=== PATIENT | male | born 1990 | race Caucasian/White ===

== ENCOUNTER 2024-11-29 21:16 | Emergency (ER) | payer MEDICAID, SELFPAY ==
[2024-11-29 21:18] VITALS: BMI 36.8
[2024-11-29 21:36] VITALS: BP 131/77; PULSE 115; RESP 18; TEMP 37.8; O2SAT 97
--- NOTE | 2024-11-29 21:49 | EDNOTE_ITS ---
Upper Respiratory Inf. RME/HPI General Chief Complaint: Flu Like Symptoms Stated Complaint: FEVER COUGH VOMITING THROAT PAIN Time Seen by Provider: 11/29/24 21:43 Arrival date/time: 11/29/24 21:16 34M with history of asthma presents to ED with several days of sore throat, N/V, fevers/chills, and some cough. Limitations: no limitations Related Data Home Medications ?Medication ?Instructions ?Recorded ?Confirmed Albuterol Sulfate HFA (INHALER) inhalation ##0 3 (PROVENTIL HFA (INHALER)) Previous Rx's ?Medication ?Instructions ?Recorded albuterol mdi 2 puff inhalation q4hprn whe christin ##2 06/08/13 prednisolone sodium phosphate 30 30 mg PO QDAY #5 tabs 11/06/18 mg disintegrating tablet ibuprofen 800 mg tablet 800 mg PO TID PRN pain #30 t abs 02/13/19 ibuprofen 600 mg tablet 600 mg PO Q8H PRN fever or p ain 10/17/23 #20 tabs amoxicillin 875 mg tablet 875 mg PO BID 10 days #20 ta bs 11/29/24 Allergies Allergy/AdvReac Type Severity Reaction Status Date / Time No Known Allergies Allergy Verified 11/29/24 21:23 Review of Systems Review of Systems Systems Reviewed: All systems reviewed, normal except as documented Constitutional Constitutional: Reports system reviewed and no additional complaints, except as documented, Reports as per HPI, Reports chills, Reports fever(s) and Denies headache(s) ENT Ears, Nose, Mouth, and Throat: Reports as per HPI, Denies disequilibrium, Denies headache(s) and Reports sore throat Cardiovascular Cardiovascular: Reports system reviewed and no additional complaints, except as documented, Denies chest pain and Denies dyspnea Respiratory Respiratory: Reports system reviewed and no additional complaints, except as documented, Reports as per HPI, Reports cough and Denies dyspnea Gastrointestinal Gastrointestinal: Reports system reviewed and no additional complaints, except as documented, Reports as per HPI, Denies abdominal pain, Reports nausea and Reports vomiting Neurologic Neurologic: Reports system reviewed and no additional complaints, except as documented, Denies confusion, Denies disequilibrium and Denies headache(s) Psychiatric Psychiatric: Denies confusion Past Medical History Past Medical History RESPIRATORY: Positive Asthma Social History SMOKING STATUS: Never smoker ED Exam General Limitations: Present no limitations General appearance: Present alert and in no apparent distress Head Head exam: Present atraumatic Eye Eye exam: Present normal appearance, PERRL and EOMI ENT ENT exam: Present mucous membranes moist Expanded ENT Exam Throat exam: Present tonsillar erythema, tonsillomegaly and tonsillar exudate; Absent R peritonsillar mass, L peritonsillar mass or muffled voice Neck Neck exam: Present normal inspection, full ROM and trachea midline Chest Chest inspection: Present normal inspection and symmetric chest wall rise Respiratory Respiratory exam: Present normal lung sounds bilaterally Cardiovascular Cardiovascular exam: Present regular rate, normal rhythm and normal heart sounds Abdominal Exam Abdominal exam: Present soft and normal bowel sounds Extremities Exam Extremities exam: Present normal inspection and full ROM Back Exam Back exam: Present normal inspection and full ROM Neurological Exam Neurological exam: Present alert, oriented X3 and CN II-XII intact Psychiatric Psychiatric exam: Present normal affect and normal mood Skin Skin exam: Present warm, dry, intact and normal color Course Quality Measures none Orders Category Date Time Status Bedside COVID-19 Antigen Test NOW Care 11/29/24 21:29 Active Bedside Influenza A&B Antigen Test NOW Care 11/29/24 21:29 Completed Strep A Rapid Stat Lab 11/29/24 21:46 Completed Acetaminophen Tab [Tylenol ES Tab] Med 11/29/24 21:43 Discontinued 1,000 mg PO X1 ONE Dexamethasone Inj [Decadron Inj] Med 11/29/24 21:43 Discontinued 10 mg PO X1 ONE cefTRIAXone [Rocephin] 1,000 mg Med 11/29/24 22:24 Ordered Lidocaine 1% 20 ml [Xylocaine 1% 20 ML] 2.1 ml IM X1 Vital Signs Vital signs: Vital Signs Temperature 100.1 F 11/29/24 21:36 Pulse Rate 115 H 11/29/24 21:36 Respiratory Rate 18 11/29/24 21:36 Blood Pressure 131/77 H 11/29/24 21:36 Pulse Oximetry (%) 97 11/29/24 21:36 Oxygen Delivery Method Room Air 11/29/24 21:36 O2 at 97% on RA and WNLs Upper Respiratory Infection MDM Narrative MDM Narrative:: 34M with history of asthma presents to ED with several days of sore throat, N/V, fevers/chills, and some cough. Physical exam reveals red and swollen oropharynx with exudates. Normal WOB and clear lungs. Patient is mildly febrile, but does not appear toxic. Strep+. Patient data External records reviewed:: [facility] previous records Clinical information provided by:: patient Social determinants that could affect healthcare access:: none Patient has the following chronic illnesses:: asthma How is presenting disease/condition affected by chronic disease/condition?: exacerbated by Evaluation data The following diagnostics were reviewed and interpreted by me:: lab results Lab and/or radiology exams considered but not ordered:: ordered Interpretation Summary: above Medications / Prescriptions Medications or Prescriptions considered but not ordered:: ordered Medication administrations:: Medication Administration History Ceftriaxone Sodium 1,000 mg/ (Lidocaine HCl 2.1 ml) 0 mg IM X1 ONE Stop: 11/29/24 22:25 Discontinued Medications Acetaminophen (Acetaminophen 500 Mg Tablet) 1,000 mg PO X1 ONE Stop: 11/29/24 21:44 Dexamethasone Sodium Phosphate (Dexamethasone Sod Phos Inj 10 Mg/Ml Vial) 10 mg PO X1 ONE Stop: 11/29/24 21:44 above Consultations Consultation(s) initiated? (list below): No Diagnosis Upper Respiratory Differential Diagnosis: upper respiratory infection, croup, otitis media, sinusitis, viral infection, bronchitis, influenza and pharyngitis Most likely diagnosis given after review of the tests above:: strep throat Admission Indicated Admission indicated?: not indicated Admission Request Was there a request for admission?: No Disposition Plan Disposition Plan: Discharge Discharge Attestation Discharge Attestation: The patient and all family members were given an opportunity to ask questions and understood the discharge instructions. Discharge instructions specifically effects, indications for sooner follow up or return to the emergency department, and the expected course of current diagnosis. Patient condition: Stable Discharge Plan Plan Patient Disposition: HOME (Self Care) Discharge Disposition comment: Stable Prescriptions/Referrals Prescriptions/Med Rec: New amoxicillin 875 mg tablet 875 mg PO BID 10 Days Qty: 20 0RF No Action Albuterol Sulfate HFA (INHALER) (PROVENTIL HFA (INHALER)) 8.5 GM HFA.AER.[id number] Inhalation Qty: 0 albuterol mdi 2 puff Inhalation q4hprn wheeze Qty: 2 0RF ibuprofen 800 mg tablet 800 mg PO TID PRN (Reason: pain) Qty: 30 0RF prednisolone sodium phosphate 30 mg tablet,disintegrating 30 mg PO QDAY Qty: 5 0RF ibuprofen 600 mg tablet 600 mg PO Q8H PRN (Reason: fever or pain) Qty: 20 0RF Referrals: Doug Villagomez PA-C [Primary Care Provider] - In 1 week Problem List Clinical Impression: Acute streptococcal pharyngitis Patient/Caregiver Discharge Instructions Education Materials: ED Pharyngitis, Strep (Confirmed) Additional Instructions: Please follow-up with PCP within 24-48 hours and return immediately if symptoms worsen. Ibuprofen/Tylenol can be used simultaneously for greater fever/pain control. Print Language: Romanian Stand Alone Forms: Patient Portal Info Letter PA/FINISHER OPERATOR Supervising Physician DMITRI/MARJORIE Supervising Physician: Dr. Grant
[2024-11-29 22:21] LABS: Strep A Rapid Positive (Negative)
[2024-11-29] MEDS: ACETAMINOPHEN 500 MG TABLET 1000 MG PO (23:10)
[2024-11-29] MEDS: cefTRIAXone 1,000 MG, LIDOCAINE 1% 20 ML 2.1 ML IM (23:10)
[2024-11-29] MEDS: DEXAMETHASONE SOD PHOS INJ 10 MG/ML VIAL PO (23:11)
== END 2024-11-30 00:15 | disposition home or self-care (01) ==
PROVIDERS: Physician Assistant; Emergency Provider Emergency Medicine; PCP Physician Assistant
DX: J02.0 Streptococcal pharyngitis (principal)
CPT/HCPCS: 87400; 87651; 87811; 96372; 99283; J0696; J1100; J3490; A9270